=== PATIENT | male | born 1985 | race Caucasian/White ===

== ENCOUNTER 2019-02-24 17:46 | Emergency (ER) | payer MEDICAID, OTHER ==
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
[2019-02-24] MEDS ORDERED: Baclofen 10 MG Tab PO ONE (18:40)
[2019-02-24] MEDS ORDERED: Ketorolac 60 MG/2 ML SDV IM ONE (18:40)
[2019-02-24] MEDS ORDERED: Acetaminophen/oxyCODONE 325-5 MG Tab PO ONE (18:41)
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
[2019-02-24] MEDS ORDERED: HYDROmorphone 0.5 MG/0.5 ML Syringe IM ONE (19:59)
[2019-02-24] MEDS ORDERED: HYDROmorphone 1 MG/ML Syringe IM ONE (22:27)
== END 2019-02-24 23:08 | disposition home or self-care (01) ==
LOC: EDBD → JP.ED 17:46
DX: M54.6 Pain in thoracic spine (principal); Z79.899 Other long term (current) drug therapy
CPT/HCPCS: 71046; 72072; 96372; 99283-25; A9270-GY; J1170; J1885

== ENCOUNTER 2019-02-26 01:53 | Emergency (ER) | payer MEDICAID, OTHER ==
[2019-02-26] MEDS ORDERED: Ketorolac 60 MG/2 ML SDV IM ONE (02:22)
[2019-02-26] MEDS ORDERED: Acetaminophen 500 MG Tab PO ONE (02:24)
[2019-02-26] MEDS ORDERED: Baclofen 10 MG Tab PO ONE (02:24)
[2019-02-26] MEDS ORDERED: Acetaminophen 325 MG Tab PO ONE (02:25)
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
[2019-02-26] MEDS ORDERED: Gabapentin 100 MG Cap PO ONE ×3 (03:03→07:55)
== END 2019-02-26 08:50 | disposition other institution (70) ==
LOC: EDBD 01:53 → JP.ED 01:53
DX: M54.2 Cervicalgia (principal); E03.9 Hypothyroidism, unspecified; Z79.899 Other long term (current) drug therapy
CPT/HCPCS: 96372; 99283; 99284; A9270-GY; J1885